=== PATIENT | female | born 1990 | race Two or more races ===

== ENCOUNTER 2025-01-15 08:32 | Inpatient (IN) | payer OTHER ==
[~2025-01-15] VITALS: Ht 165.1 cm; Wt 83.9 kg
[2025-01-15] MEDS ORDERED: SYNTHROID75 MCG PO (08:41)
[2025-01-15] MEDS ORDERED: PEPCID40 MG PO (08:41)
[2025-01-15] MEDS ORDERED: PROAIR RESPICL90 MCG IH (08:42)
[2025-01-15] MEDS ORDERED: [UNRECOGNIZED DRUG - OTHER] (08:42)
[2025-01-15] MEDS ORDERED: ALLERGY RELIE15.8 ML (08:43)
[2025-01-15 08:44] VITALS: BP 129/84
[2025-01-15 08:52] LABS: BASO % 1.1 % (0.1-1.2); EOS # 0.22 (0.04-0.54); EOS % 2.8 % (0.7-7.0); LYMPH # 2.68 (1.18-3.74); LYMPH % 34.2 % (19.3-53.1); MEAN PLATELET VOLUME 10.50 fl (9.4-12.4); MONO # 0.64 (0.24-0.82); MONO % 8.2 % (4.7-12.5); NEUT # 4.19 (1.56-6.13); NEUT % 53.4 % (34.0-71.1); RED CELL DISTRIBUTION WIDTH 13.1 % (11.6-14.4)
[2025-01-15 09:12] LABS: INR 0.95
[2025-01-15 09:56] LABS: RH POSITIVE
[2025-01-15 10:25] LABS: ALT/SGPT 28 U/L (12-78); AST/SGOT 15 U/L (15-37); BILIRUBIN TOTAL 0.23 mg/dL (0.3-1.2); BUN CREA RATIO 15 (7.0-25.0); CREATININE SERUM 0.81 mg/dL (0.55-1.02); GFR 80.46; GLOBULINA 3.7 G/DL (2.4-3.5); GLUCOSE FASTING 83 mg/dL (65-100); OSMOLALITY SERUM 278 MOSM/KG (275-295)
[2025-01-15 10:26] LABS: HCG QUANTITATIVE < 1 mUI/mL (1-3)
[2025-01-15 12:53] LABS: URINE APPEARANCE Clear; URINE BILIRRUBIN Negative (NEGATIVE); URINE BLOOD Negative; URINE COLOR Yellow; URINE GLUCOSE Negative (NEGATIVE); URINE KETONE Negative (NEGATIVE); URINE LEUKOCYTE Trace; URINE NITRATE Negative; URINE PROTEIN Negative (NEGATIVE); URINE UROBILINOGEN 0.2 E.U./dl
[2025-01-15 12:55] LABS: URINE BACTERIA 588.9 uL (0.0-1933); URINE EPITHELIAL CELLS 26.4 uL (0.0-38.8); URINE RBC 28.1 uL (0.0-20.8); URINE WBC 12.2 uL (0.0-23.2)
[2025-01-15 13:32] LABS: URINE CAST 0.00 uL (0.0-1.40)
[2025-01-21] MEDS ORDERED: HEPARIN SODIUM,PORCINE 5,000 UNITS/ML VIAL IV ONE (09:00)
[2025-01-21] MEDS ORDERED: CEFAZOLIN SODIUM 1,000 MG VIAL IV ONE (09:00)
[2025-01-21] MEDS ORDERED: POVIDONE-IODINE 118 ML BOTT TOP ONE (09:00)
[2025-01-21] MEDS ORDERED: METRONIDAZOLE/SODIUM CHLORIDE 500 MG/100 ML PIGGYBACK IV ONE (09:00)
[2025-01-21] MEDS ORDERED: SUGAMMADEX SODIUM 200 MG/2 ML VIAL IV ONE (09:45)
[2025-01-21] MEDS ORDERED: RINGERS SOLUTION,LACTATED 1,000 ML IV SCH (11:30)
[2025-01-21] MEDS ORDERED: MORPHINE SULFATE 4 MG/ML VIAL IV ONE ×2 (11:30→12:30)
[2025-01-21] MEDS ORDERED: ONDANSETRON HCL 2 MG/ML VIAL IV PRN (11:45)
[2025-01-21] MEDS ORDERED: KETOROLAC TROMETHAMINE 30 MG VIAL IV SCH (12:00)
[2025-01-21] MEDS ORDERED: ACETAMINOPHEN 500 MG GEL..CAP PO SCH (12:00)
[2025-01-21] MEDS ORDERED: GABAPENTIN 300 MG CAPSULE PO SCH (13:00)
[2025-01-21 13:21] VITALS: BP 129/75; O2SAT 18
[2025-01-21 16:00] VITALS: BP 127/79
[2025-01-22] VITALS: BP 111/72
[2025-01-22] MEDS ORDERED: LEVOTHYROXINE SODIUM 75 MCG TABLET PO SCH (06:00)
[2025-01-22 07:04] LABS: BASO % 0.5 % (0.1-1.2); EOS # 0.10 (0.04-0.54); EOS % 1.0 % (0.7-7.0); LYMPH # 2.84 (1.18-3.74); LYMPH % 28.8 % (19.3-53.1); MEAN PLATELET VOLUME 11.00 fl (9.4-12.4); MONO # 0.70 (0.24-0.82); MONO % 7.1 % (4.7-12.5); NEUT # 6.15 (1.56-6.13); NEUT % 62.4 % (34.0-71.1); RED CELL DISTRIBUTION WIDTH 13.4 % (11.6-14.4)
[2025-01-22 09:13] VITALS: BP 122/85
[2025-01-27] MEDS ORDERED: CHILDREN'S ASPI81 MG (10:26)
== END 2025-01-22 12:42 | disposition home or self-care (01) | DRG 743 ==
LOC: OB/GYN 01-21 08:45 → O/R 01-21 10:42 → OB/GYN 01-21 10:42
PROVIDERS: ADMIT Student in an Organized Health Care Education/Training Program; ATTEND Student in an Organized Health Care Education/Training Program
PROC: 0TN64ZZ Release Right Ureter, Percutaneous Endoscopic Approach (ICD-10-PCS; 2025-01-21)
PROC: 0TJB8ZZ Inspection of Bladder, Via Natural or Artificial Opening Endoscopic (ICD-10-PCS; 2025-01-21)
PROC: 0UT94ZZ Resection of Uterus, Percutaneous Endoscopic Approach (ICD-10-PCS; principal; 2025-01-21 16:45)
PROC: B54BZZZ Ultrasonography of Right Lower Extremity Veins (ICD-10-PCS; 2025-01-22)
DX: N80.03 Adenomyosis of the uterus (principal); N72 Inflammatory disease of cervix uteri; N94.4 Primary dysmenorrhea; R10.2 Pelvic and perineal pain; N93.9 Abnormal uterine and vaginal bleeding, unspecified